=== PATIENT | male | born 1990 | race African-American/Black ===

== ENCOUNTER 2024-03-26 19:21 | Emergency (ER) | payer BC ==
[~2024-03-26] VITALS: Ht 180.3 cm; Wt 148.0 kg
[2024-03-26 19:28] VITALS: BP 160/93; TEMP 98.3
[2024-03-26] MEDS ORDERED: Ibuprofen 400 MG TAB PO ONE (20:30)
[2024-03-26] MEDS ORDERED: Acetaminophen 325 MG TAB PO ONE (20:30)
[2024-03-26 22:11] VITALS: PULSE 76
== END 2024-03-26 22:08 | disposition home or self-care (01) ==
LOC: COL.ER 19:21
DX: M25.511 Pain in right shoulder (principal)